=== PATIENT | male | born 1945 | race Caucasian/White ===

== ENCOUNTER 2019-11-21 09:56 | Day surgery (SDC) | payer MEDICARE, BC ==
[2019-11-17 10:35] LABS: BASOPHILS # (AUTO) 0.1 X10'3 (0-0.2); BASOPHILS % (AUTO) 1.3 % (0-1); EOSINOPHILS # (AUTO) 0.5 X10'3 (0-0.9); EOSINOPHILS % (AUTO) 8.7 % (0-6); HEMATOCRIT 38.1 % (42.0-52.0); HEMOGLOBIN 13.4 g/dl (14.0-17.9); LYMPHOCYTES # (AUTO) 1.8 X10'3 (1.1-4.8); LYMPHOCYTES % (AUTO) 28.9 % (21-51); MEAN CORPUSCULAR HEMOGLOBIN 31.8 PG (27.0-31.0); MEAN CORPUSCULAR HGB CONC 35.2 g/dL (33.0-36.5); MEAN CORPUSCULAR VOLUME 90.4 FL (78-98); MEAN PLATELET VOLUME 7.9 FL (7.4-10.4); MONOCYTES # (AUTO) 0.5 X10'3 (0-0.9); MONOCYTES % (AUTO) 7.5 % (2-12); NEUTROPHILS # (AUTO) 3.3 X10'3 (1.8-7.7); NEUTROPHILS % (AUTO) 53.6 % (42-75); PLATELET COUNT 190 X10'3 (140-440); RED BLOOD COUNT 4.22 X10'6 (4.70-6.10); RED CELL DISTRIBUTION WIDTH 13.9 % (11.5-14.5); WHITE BLOOD COUNT 6.1 X10'3 (4.5-11.0)
[2019-11-17 10:50] LABS: ALBUMIN 3.9 G/DL (3.4-5.0); ANION GAP 9 (8-16); BLOOD UREA NITROGEN 17 MG/DL (7-18); BUN/CREATININE RATIO 12.9 (5.4-32.0); CHLORIDE 107 MMOL/L (99-107); CREATININE 1.32 MG/DL (0.60-1.10); GLUCOSE 132 MG/DL (70-104); PARTIAL THROMBOPLASTIN TIME 27 SECONDS (22-32); POTASSIUM 3.8 MMOL/L (3.5-5.1); SODIUM 144 MMOL/L (135-145); TOTAL CARBON DIOXIDE 28.1 MMOL/L (24-32); eGFR 53 ML/MIN
[2019-11-21] VITALS (10 sets, daily range): BP systolic 124–146; BP diastolic 59–92
[~2019-11-21] VITALS: Ht 185.4 cm; Wt 106.7 kg
[~2019-11-21 09:56] MED LIST: ADV50500 IH; ALBU18HF2 IH; ALLO100T PO; DIGO125T PO; LOSA1TAB36 PO; METF1000 PO; PRAM0.253 PO; PREG75CA30 PO; RIVA10TA PO; ROSU5TAB4 PO; VERA120T2 PO
[2019-11-21] MEDS ORDERED: LORazepam 0.5 MG tablet PO PRN (10:20)
[2019-11-21] MEDS ORDERED: diphenhydrAMINE 25mg capsule PO PRN (10:20)
[2019-11-21] MEDS ORDERED: normal saline 1,000 ML IV SCH (10:20)
[2019-11-21] MEDS ORDERED: BUDE10.2 (11:49)
[2019-11-21] MEDS ORDERED: IRON SLOW RELEASE (11:49)
[2019-11-21] MEDS ORDERED: FURO40TA4 (11:49)
[2019-11-21] MEDS ORDERED: PRAM1TAB6 (11:49)
[2019-11-21] MEDS ORDERED: DOXA4TAB3 PO (11:49)
[2019-11-21] MEDS ORDERED: NICO-631 (11:49)
[2019-11-21] MEDS ORDERED: NICO-687 (11:49)
[2019-11-21] MEDS ORDERED: PANT40SU2 PO (11:49)
[2019-11-21] MEDS ORDERED: midazolam 2 mg/2 ml injection ONE (12:55)
[2019-11-21] MEDS ORDERED: LIDOcaine 1% (10mg/ml)w/preservative injection 20ml MDV ONE (12:55)
[2019-11-21] MEDS ORDERED: fentaNYL/PF 50MCG/1 ML 2ML syringe ONE (12:55)
[2019-11-21] MEDS ORDERED: iohexol 350MG/ML 100ml bottle IV ONE (12:56)
[2019-11-21] MEDS ORDERED: iohexol 350 MG/ML 50ML vial IV ONE (13:17)
[2019-11-21] MEDS ORDERED: HYDROcodone/acetaminophen 5mg/325mg tablet PO PRN (14:50)
[2019-11-21] MEDS ORDERED: HYDROcodone/acetaminophen 10/325mg tab PO PRN (14:50)
[2019-11-21] MEDS ORDERED: OXAZEpam 15mg capsule PO PRN (14:50)
[2019-11-21] MEDS ORDERED: normal saline 1000ml 1,000 ML IV SCH (14:50)
== END 2019-11-21 18:10 | disposition home or self-care (01) ==
LOC: SSTAY O 09:56
PROVIDERS: ATTEND Internal Medicine Interventional Cardiology
DX: I35.0 Nonrheumatic aortic (valve) stenosis (principal); I25.10 Atherosclerotic heart disease of native coronary artery without angina pectoris; I48.91 Unspecified atrial fibrillation; I34.0 Nonrheumatic mitral (valve) insufficiency; G47.33 Obstructive sleep apnea (adult) (pediatric); J45.909 Unspecified asthma, uncomplicated; E11.22 Type 2 diabetes mellitus with diabetic chronic kidney disease; I13.0 Hypertensive heart and chronic kidney disease with heart failure and stage 1 through stage 4 chronic kidney disease, or unspecified chronic kidney disease; N18.2 Chronic kidney disease, stage 2 (mild); I27.20 Pulmonary hypertension, unspecified; I50.9 Heart failure, unspecified; E78.5 Hyperlipidemia, unspecified; G25.81 Restless legs syndrome; Z86.718 Personal history of other venous thrombosis and embolism; Z79.899 Other long term (current) drug therapy; Z79.84 Long term (current) use of oral hypoglycemic drugs; Z98.890 Other specified postprocedural states
CPT/HCPCS: 36415; 80048; 85025; 85610; 85730; 93005; 93308; 93458; 99152; 99153; C1769; J1644; J2001; J2250; J3010; Q0163; Q9967; A4620; A6258

== ENCOUNTER 2024-05-03 11:32 | Emergency (ER) | payer MEDICARE, BC ==
[~2024-05-03] VITALS: Ht 185.4 cm; Wt 106.3 kg
[~2024-05-03 11:32] MED LIST changes: -ADV50500 IH; -ALBU18HF2 IH; +ALBU6.7H14 INH; +CEFU500T66 PO; -DIGO125T PO; +DOXA4TAB3 PO; +EMPA10TA PO; +FERR142T14 PO; +FLUT1BLS4 IH; +FURO40TA4 PO; -LOSA1TAB36 PO; -METF1000 PO; +PANT-47 PO; +POTA-207 PO; -PRAM0.253 PO; +PRAM1TAB6 PO; +PREG100C56 PO; -PREG75CA30 PO; -RIVA10TA PO; -VERA120T2 PO; +VERA180T59 PO; +ZAR5T PO
[2024-05-03 11:35] VITALS: TEMP 97.1
[2024-05-03] MEDS ORDERED: DOXY100C77 PO (13:52)
[2024-05-03 13:56] VITALS: BP 133/82; PULSE 82; RESP 16; O2SAT 99
[2024-05-08] MEDS ORDERED: FURO40TA4 PO (01:59)
[2024-05-08] MEDS ORDERED: ALBU8HFA PO (01:59)
[2024-05-08] MEDS ORDERED: PRAM1TAB6 PO (02:01)
[2024-05-08] MEDS ORDERED: POTA20PA40 PO (02:01)
[2024-05-08] MEDS ORDERED: EMPA10TA PO (02:02)
[2024-05-11] MEDS ORDERED: CEPH500C2 PO (11:16)
== END 2024-05-03 13:57 | disposition home or self-care (01) ==
LOC: ER 11:33
DX: R60.0 Localized edema (principal); L03.116 Cellulitis of left lower limb; L03.115 Cellulitis of right lower limb; J44.9 Chronic obstructive pulmonary disease, unspecified; I10 Essential (primary) hypertension; I48.91 Unspecified atrial fibrillation; E78.00 Pure hypercholesterolemia, unspecified; Z91.018 Allergy to other foods
CPT/HCPCS: 99283

== ENCOUNTER 2024-08-18 01:28 | Inpatient (IN) | payer BC, MEDICARE ==
[~2024-08-18] VITALS: Ht 175.3 cm; Wt 106.0 kg
[2024-08-18] VITALS (14 sets, daily range): BP systolic 113–144; BP diastolic 59–92; PULSE 63–153; RESP 12–20; TEMP 97.3–97.6; O2SAT 92–98
[~2024-08-18 01:28] MED LIST changes: +ALBU8HFA PO; -CEFU500T66 PO; +CEPH500C2 PO; -FLUT1BLS4 IH; -POTA-207 PO; +POTA20PA40 PO; -VERA180T59 PO; -ZAR5T PO
[2024-08-18] MEDS: ipratropium/albuterol 3ml nebule NEB ONE (01:49)
[2024-08-18 02:26] LABS: BASOPHILS # (AUTO) 0.1 X10'3 (0-0.2); EOSINOPHILS # (AUTO) 0.4 X10'3 (0-0.9); EOSINOPHILS % (AUTO) 5.2 % (0-6); HEMATOCRIT 44.2 % (42.0-52.0); HEMOGLOBIN 14.8 g/dl (14.0-17.9); LYMPHOCYTES # (AUTO) 1.9 X10'3 (1.1-4.8); LYMPHOCYTES % (AUTO) 24.6 % (21-51); MEAN CORPUSCULAR HEMOGLOBIN 32.2 PG (27.0-31.0); MEAN CORPUSCULAR HGB CONC 33.4 g/dL (33.0-36.5); MEAN CORPUSCULAR VOLUME 96.3 FL (78-98); MEAN PLATELET VOLUME 9.1 FL (7.4-10.4); MONOCYTES # (AUTO) 0.8 X10'3 (0-0.9); MONOCYTES % (AUTO) 10.1 % (2-12); NEUTROPHILS # (AUTO) 4.4 X10'3 (1.8-7.7); NEUTROPHILS % (AUTO) 59.1 % (42-75); PLATELET COUNT 179 X10'3 (140-440); RED BLOOD COUNT 4.59 X10'6 (4.70-6.10); RED CELL DISTRIBUTION WIDTH 15.8 % (11.5-14.5); WHITE BLOOD COUNT 7.5 X10'3 (4.5-11.0)
[2024-08-18 02:33] LABS: ALANINE AMINOTRANSFERASE 28 U/L (12-78); ALBUMIN 3.3 G/DL (3.4-5.0); ALBUMIN/GLOBULIN RATIO 0.9 (1.1-1.5); ALKALINE PHOSPHATASE 127 IU/L (46-116); ANION GAP 7 (8-16); ASPARTATE AMINO TRANSFERASE 25 U/L (10-37); BILIRUBIN,TOTAL 0.8 MG/DL (0.1-1.0); BLOOD UREA NITROGEN 34 MG/DL (7-18); BUN/CREATININE RATIO 20.6 (10.0-20.0); CALCIUM 8.3 MG/DL (8.5-10.1); CHLORIDE 111 MMOL/L (99-107); CREATININE 1.65 MG/DL (0.60-1.10); GLUCOSE 93 MG/DL (70-104); SODIUM 142 MMOL/L (135-145); TOTAL CARBON DIOXIDE 23.8 MMOL/L (24-32); TOTAL PROTEIN 6.9 G/DL (6.4-8.2); eCRCL 37 ML/MIN; eGFR 41 ML/MIN
[2024-08-18 02:38] LABS: PRO BRAIN NATRIURETIC PEPTIDE 2526 PG/ML (0-450)
[2024-08-18] MEDS: methylPREDNISolone sod succ 125mg/2ml vial IV ONE (02:42)
[2024-08-18] MEDS ORDERED: FURO-149 PO (04:07)
[2024-08-18] MEDS ORDERED: POTA-192 PO (04:15)
[2024-08-18] MEDS ORDERED: SACU1TAB PO (04:15)
[2024-08-18] MEDS ORDERED: FERR-116 PO (04:18)
[2024-08-18] MEDS: furosemide 10 MG/1 ML 10ml inj IV ONE (05:02)
[2024-08-18] MEDS ORDERED: magnesium sulf-water 2g/50mL 50 ML IV PRN (05:50)
[2024-08-18] MEDS ORDERED: magnesium Cl slow-release 64mg tablet PO PRN (05:50)
[2024-08-18] MEDS ORDERED: magnesium sulf-water 4G/100mL 100 ML IV PRN (05:50)
[2024-08-18] MEDS ORDERED: potassium Cl 40MEQ/1/2NS 520ml 520 ML IV PRN (05:50)
[2024-08-18] MEDS ORDERED: potassium Cl 20 mEq SR tablet PO PRN ×2 (05:50)
[2024-08-18] MEDS ORDERED: albuterol 2.5 MG/3 ML nebule NEB PRN (06:10)
[2024-08-18] MEDS: K and/or MAG REPLACEMENT MC SCH (07:58)
[2024-08-18] MEDS: atorvastatin 20mg tablet PO SCH (08:22)
[2024-08-18] MEDS: metoprolol succinate 25mg (24-HOUR) SR. Tablet PO SCH (08:22)
[2024-08-18] MEDS: pregabalin 25mg capsule PO SCH (08:23)
[2024-08-18] MEDS: allopurinol 100mg tablet PO SCH (08:23)
[2024-08-18] MEDS: ferrous sulfate 325mg tablet PO SCH (08:23)
[2024-08-18] MEDS: sacubitril/valsartan 24mg-26mg tablet PO SCH (08:24)
[2024-08-18] MEDS: heparin, porcine 5000 units/ml vial SQ SCH (08:28)
[2024-08-18] MEDS: ipratropium/albuterol 3ml nebule NEB SCH (09:09)
[2024-08-18] MEDS ORDERED: FLU VACC TS2024-25(6MOS UP)/PF 45 MCG/0.5 ML SYRINGE IMVAC ONE (11:45)
[2024-08-18] MEDS: methylPREDNISolone sod succ 125mg/2ml vial IV SCH (13:57)
[2024-08-18] MEDS: furosemide 40mg/4ml inj IV SCH (21:37)
[2024-08-18] MEDS: Melatonin 3mg tablet PO ONE (22:14)
[2024-08-18] MEDS: pramipexole 1mg tablet PO SCH (22:14)
[2024-08-19] VITALS (9 sets, daily range): BP systolic 121–125; BP diastolic 70–76; PULSE 64–87; RESP 16–20; TEMP 97.3–97.6; O2SAT 93–96
[2024-08-19 07:07] LABS: BASOPHILS % (AUTO) 0.2 % (0-1); EOSINOPHILS % (AUTO) 0 % (0-6); HEMATOCRIT 42.2 % (42.0-52.0); HEMOGLOBIN 14.2 g/dl (14.0-17.9); LYMPHOCYTES # (AUTO) 0.5 X10'3 (1.1-4.8); LYMPHOCYTES % (AUTO) 4.4 % (21-51); MEAN CORPUSCULAR HEMOGLOBIN 32.1 PG (27.0-31.0); MEAN CORPUSCULAR HGB CONC 33.5 g/dL (33.0-36.5); MEAN CORPUSCULAR VOLUME 95.7 FL (78-98); MEAN PLATELET VOLUME 9.2 FL (7.4-10.4); MONOCYTES # (AUTO) 0.2 X10'3 (0-0.9); MONOCYTES % (AUTO) 1.8 % (2-12); NEUTROPHILS # (AUTO) 10.2 X10'3 (1.8-7.7); NEUTROPHILS % (AUTO) 93.6 % (42-75); PLATELET COUNT 177 X10'3 (140-440); RED BLOOD COUNT 4.41 X10'6 (4.70-6.10); RED CELL DISTRIBUTION WIDTH 15.5 % (11.5-14.5); WHITE BLOOD COUNT 10.9 X10'3 (4.5-11.0)
[2024-08-19 07:13] LABS: APTT 27 SECONDS (22-32); INR 1.1 INR; PROTHROMBIN TIME 11.3 SECONDS (9.0-12.0)
[2024-08-19 07:26] LABS: ALBUMIN 3.3 G/DL (3.4-5.0); ANION GAP 12 (8-16); BLOOD UREA NITROGEN 54 MG/DL (7-18); BUN/CREATININE RATIO 26.2 (10.0-20.0); CALCIUM 8.2 MG/DL (8.5-10.1); CHLORIDE 103 MMOL/L (99-107); CREATININE 2.06 MG/DL (0.60-1.10); GLUCOSE 250 MG/DL (70-104); MAGNESIUM 2.1 MG/DL (1.5-2.4); PHOSPHORUS 3.7 MG/DL (2.3-4.5); POTASSIUM 4.8 MMOL/L (3.5-5.1); SODIUM 138 MMOL/L (135-145); TOTAL CARBON DIOXIDE 22.8 MMOL/L (24-32); eCRCL 30 ML/MIN; eGFR 31 ML/MIN
[2024-08-19] MEDS: normal saline 500ml IV soln 500 ML IV ONE (10:01)
[2024-08-19] MEDS ORDERED: PRED10TA23 PO (10:55)
[2024-08-19] MEDS ORDERED: BUDE10.27 PO (11:02)
[2024-08-19] MEDS ORDERED: Melatonin 3mg tablet PO SCH (21:00)
== END 2024-08-19 13:00 | disposition home or self-care (01) | DRG 682 ==
LOC: ER 01:29 → ED HOLD 05:51 → PCU 3S 08:56
PROVIDERS: ADMIT Internal Medicine Sleep Medicine; ATTEND Internal Medicine
DX: N17.0 Acute kidney failure with tubular necrosis (principal); I50.33 Acute on chronic diastolic (congestive) heart failure; J44.1 Chronic obstructive pulmonary disease with (acute) exacerbation; I11.0 Hypertensive heart disease with heart failure; E78.00 Pure hypercholesterolemia, unspecified; I48.91 Unspecified atrial fibrillation; M10.9 Gout, unspecified; Z66 Do not resuscitate; G47.30 Sleep apnea, unspecified; Z79.899 Other long term (current) drug therapy
CPT/HCPCS: 36415; 71045; 80048; 80053; 83735; 83880; 84100; 84484; 85025; 85610; 85730; 87081; 90686; 93005; 94640; 94760; 96374; 96375; 97116; 97161; 99291; A6258; G0378; J1644; J1940; J2919; J7040